=== PATIENT | female | born 1965 | race Caucasian/White ===

== ENCOUNTER 2017-08-28 14:11 | Emergency (ER) | payer MEDICAID, SELFPAY ==
[2017-08-28 14:18] VITALS: BMI 35.3
[2017-08-28 14:20] VITALS: BP 144/88; PULSE 79; RESP 24; TEMP 37.1; O2SAT 96; BMI 35.3
--- NOTE | 2017-08-28 14:24 | [facility].EDGENADL ---
ED Disposition Clinical Impression: Atypical chest pain Disposition: Left Against Medical Advice Condition on Discharge: Good Referrals: Curt Berrios [Primary Care Provider] - - Critical Care Critical Care Time: No Attestation: On , the high probability of a clinically significant, sudden or life threatening deterioration of the following system(s) required my full and direct attention, intervention and personal management. The time I documented below is in addition to time spent performing reported procedures but includes the following listed in this critical care notation. Medical Decision Making Vital Signs: 08/28/17 14:20 08/28/17 18:01 Temperature 98.8 F 98.6 F Temperature Source Oral Oral Pulse Rate 68 Pulse Rate [Right Brachial] 79 Respiratory Rate 24 22 Blood Pressure 155/88 Blood Pressure [Right Arm] 144/88 Blood Pressure Mean [Right Arm] 106 Blood Pressure Source Automatic Cuff Blood Pressure Source [Right Arm] Automatic Cuff Blood Pressure Position Sitting Blood Pressure Position [Right Arm] Supine 02 Sat by Pulse Oximetry 96 Oxygen Delivery Method Room Air Room Air - Lab Data Lab Results 08/28/17 14:35: WBC 14.0 H, RBC 5.57 H, Hgb 15.2, Hct 45.6, MCV 81.9, MCH 27.3, MCHC 33.3, RDW 14.6, Plt Count 259, MPV 8.1, Neut % (Auto) 82.2 H, Lymph % (Auto) 13.5, [place] % (Auto) 3.1, Eos % (Auto) 1.0, Baso % (Auto) 0.1, Neut # (Auto) 11.5 H, Lymph # (Auto) 1.9, [place] # (Auto) 0.4, Eos # (Auto) 0.2, Baso # (Auto) 0.0 08/28/17 14:35: Sodium 145, Potassium 4.0, Chloride 108 H, Carbon Dioxide 27, Anion Gap 14.0, BUN 9, Creatinine 0.69, Estimated Creat Clear 141, Estimated GFR 89, Est GFR ( Amer) 108, Glucose 107 H, Calcium 8.9, Total Bilirubin 0.4, AST 8 L, ALT 20, Alkaline Phosphatase 107, Total Creatine Kinase 61, CK-MB (CK-2) 0.6, CK-MB (CK-2) Rel Index 1.0, Troponin I 0.08 H, Total Protein 7.5, Albumin 3.9, Globulin 3.6 H, Albumin/Globulin Ratio 1.1 08/28/17 14:35: D-Dimer 491 H* 08/28/17 17:30: Troponin I 0.17 H Result diagrams: 08/28/17 14:35 08/28/17 14:35 Orders (Tests/Meds): ED MEDICATIONS Discontinued Medications Generic Name Dose Route Start Last Admin Trade Name Alonsoq PRN Reason Stop Dose Admin Iopamidol 75 ml 08/28/17 17:13 08/28/17 17:15 [id number]; 75ml Vial IV 08/28/17 17:14 75 ml ONCE ONE Administration Ketorolac Tromethamine 30 mg 08/28/17 14:42 08/28/17 16:24 Toradol 30mg/Ml Vial IV 08/28/17 14:43 30 mg ONCE ONE Administration Sodium Chloride 20 ml 08/28/17 17:13 08/28/17 17:14 Rad-Ns 50ml Vial IV 08/28/17 17:14 20 ml ONCE ONE Administration Sodium Chloride 10 ml 08/28/17 17:13 08/28/17 17:15 Rad-Ns 50ml Vial IV 08/28/17 17:14 10 ml ONCE ONE Administration Sodium Chloride 10 ml 08/28/17 17:13 08/28/17 17:15 Rad-Saline Flush 10ml Syringe IV 08/28/17 17:14 10 ml ONCE ONE Administration - CT Data CT Scan: Chest Time Received: 17:25 Findings Narrative: CT scan interpreted by radiologist: No pulmonary embolism or aortic dissection. Small nodule upper lobe. I discussed this with the patient and the need for follow-up CT by her primary care provider. She says she understands. - ECG Data Tracing #1 EKG interpreted by Dmitry España MD: Rhythm: sinus Rate: 71 [place]: normal Ectopy: none Conduction: normal ST Segment Changes: none T Wave Changes: none Q Waves: none No evidence of acute ischemia or injury - [place] Inquiry Pt receiving controlled substance: No Medical Decision Making Narrative: 5:32 PM: I updated the patient on results thus far. Minimally elevated troponin of 0.08. Repeat troponin is ordered. CT scan results discussed. The patient says that she just wants to leave. I advised of the reasoning for repeat troponin, could indicate heart damage/heart attack, and she is agreeable to staying to have this test done at this time. 5:49 PM: Nurses report t
[2017-08-28 14:46] LABS: Basophils % 0.1 % (0.1-2.0); Eosinophils # 0.2 K/mm3 (0.0-0.4); Hematocrit 45.6 % (37.0-47.0); Hemoglobin 15.2 g/dL (12.2-16.2); Lymphocytes # 1.9 K/mm3 (0.7-4.5); Lymphocytes % 13.5 K/mm3 (10-50); Mean Corpuscular HGB Conc 33.3 g/dL (31.8-35.4); Mean Corpuscular Hemoglobin 27.3 pg (27.0-31.2); Mean Corpuscular Volume 81.9 fl (81-99); Mean Platelet Volume 8.1 fl (7.4-10.4); Monocytes # 0.4 K/mm3 (0.1-1.0); Monocytes % 3.1 % (1.7-9.3); Neutrophils # 11.5 K/mm3 (1.8-7.8); Neutrophils % 82.2 % (37.0-80.0); Platelet Count 259 K/mm3 (142-424); Red Blood Count 5.57 M/mm3 (4.20-5.40); Red Cell Distribution Width 14.6 % (11.5-17.5)
[2017-08-28 15:09] LABS: Alanine Aminotransferase 20 U/L (12-78); Albumin Level 3.9 gm/dL (3.4-5.0); Albumin/Globulin Ratio 1.1 (1.1-1.8); Alkaline Phosphatase 107 U/L (46-116); Aspartate Amino Transferase 8 U/L (15-37); Bilirubin,Total 0.4 mg/dL (0.2-1.0); Blood Urea Nitrogen 9 mg/dL (7-18); Calcium 8.9 mg/dL (8.5-10.1); Carbon Dioxide 27 mmol/L (21.0-32.0); Chloride 108 mmol/L (98-107); Creatine Kinase 61 U/L (26-192); Creatine Kinase MB 0.6 mg/ml (0.0-3.6); Creatinine Clearance Estimated 141 mL/min (0-300); Creatinine,Serum 0.69 mg/dL (0.55-1.02); Estimated Glomerular Filt Rate 89 ml/min (>60); GFR (African American) 108 ML/MIN (>60); Globulin 3.6 gm/dl (1.3-3.2); Glucose 107 mg/dL (74-106); Sodium 145 mmol/L (136-145); Total Protein,Serum 7.5 gm/dL (6.4-8.2); Troponin I 0.08 ng/ml (0.00-0.06)
[2017-08-28 15:21] LABS: D-Dimer 491 (0-400)
--- NOTE | 2017-08-28 15:51 | CT_ITS ---
CT angio chest HISTORY: Chest pain with elevated d-dimer ITS.REASON: ELEVATED D-DIMER ORDERING PHYSICIAN: Dmitry España MD PATIENT AGE: 51 years TECHNIQUE: Axial images obtained following the administration of 75 mL of Isovue 370 . Sagittal, and coronal reformatted images are also generated and reviewed. COMPARISON: None FINDINGS: No evidence of pulmonary embolus. No aortic aneurysm or dissection evident. Normal heart size. No evidence of pericardial effusion. There are scattered small nodes in the mediastinum and nathaniel some which are calcified. There are mild paraseptal emphysematous changes. There is a subpleural nodule in the right upper lobe posteriorly a 5 mm nonspecific. No lobar consolidation or collapse. A noncalcified 2 mm nodule present in the left upper lobe. A noncalcified 2 mm nodule is present in the superior segment left lower lobe. There is a calcified nodule also in the superior segment left lower lobe at 9 There are degenerative changes in the thoracic spine. Upper abdominal images show mild enlargement left adrenal gland incompletely imaged. IMPRESSION: 1. No evidence of pulmonary embolus or aortic aneurysm. 2. Old granulomatous disease. 3. Noncalcified millimeter right upper lobe nodule. Consider 6 month follow-up
--- NOTE | 2017-08-28 17:49 | PC.NURSE ---
PT CAME OUT OF ROOM SAID SHE WAS GOING OUTSIDE TO GET SOME AIR !! I ADVISED HER SHE WOULD HAVE TO STAY INSIDE THE ER , DUE TO HER IV BEING IN , SHE STARTED YELLING AND SAID SHE IS LEAVING TAKE THIS THING OUT I ADVISED SHE SHOULD STAY AND GET HER RESULTS , SHE SAID SHE WAS OUT OF HERE . IV REMOVED AND AMA PAPER SIGNED
[2017-08-28 18:01] VITALS: BP 155/88; PULSE 68; RESP 22; TEMP 37; O2SAT 100
[2017-08-28 18:51] LABS: Troponin I 0.17 ng/ml (0.00-0.06)
--- NOTE | 2017-08-28 20:12 | PC.NURSE ---
PTS REPEAT TROPONIN WAS 0.[address] TAYLOR SPOKE WITH HER AND ADVISED HER TO COME BACK TO ER , IF SHE DOESNT HAVE A RIDE TO CALL 911, PT AGREED TO COME BACK
== END 2017-08-28 18:01 | disposition left against medical advice (07) ==
PROVIDERS: Emergency Provider Emergency Medicine; PCP Internal Medicine Cardiovascular Disease
DX: Z53.29 Procedure and treatment not carried out because of patient's decision for other reasons (principal); R07.89 Other chest pain
CPT/HCPCS: 36415; 71275; 80053; 82550; 82553; 84484; 85025; 85378; 93005; 96374; 99283; Q9967